=== PATIENT | male | born 1970 | race American Indian/Alaskan Native ===

== ENCOUNTER 2016-04-29 19:10 | Emergency (ER) | payer MEDICARE ==
[2016-04-29 19:38] VITALS: BP 130/76
[2016-04-29] MEDS ORDERED: MOTRIN PO ONE (21:25)
[2016-04-29] MEDS ORDERED: DELTASONE PO ONE (21:26)
--- NOTE | 2016-04-29 21:33 | Emergency Department Report ---
HPI - General Chief Complaint: Sore Throat Time Seen by Provider: 04/29/16 21:02 - HPI HPI: 46-year-old -[place] male with the past medical history of hypertension comes in for sore throat with difficulty swallowing 1 day. Patient denies any nausea vomiting no fever no chills no runny nose no watery eyes no cough. Reports is difficult to swallow. ED Past Medical Hx - Past Medical History Hx Hypertension: Yes - Surgical History Past Surgical History?: No - Social History Smoking Status: Never Smoker Substance Use Type: None - Medications Home Medications: Home Medications Medication Instructions Recorded Confirmed Last Taken Type Ibuprofen [Motrin 800 MG tab] 800 mg PO Q8HR PRN #30 tablet 04/29/16 Unknown Rx Lisinopril/Hydrochlorothiazide 1 tab PO DAILY 04/29/16 04/29/16 Unknown History ED Review of Systems ROS: Stated complaint: SORETHOAT/CANT SWALLOW Other details as noted in HPI Constitutional: denies: chills, fever ENT: throat pain Respiratory: denies: cough, shortness of breath, wheezing Cardiovascular: denies: chest pain, palpitations Gastrointestinal: denies: abdominal pain, nausea, diarrhea Genitourinary: denies: urgency, dysuria Physical Exam - Physical Exam Vital Signs: Vital Signs 04/29/16 19:34 Temperature 98.2 F Pulse Rate 86 Respiratory 16 Rate Blood Pressure 130/76 Blood Pressure 130/76 [Left] O2 Sat by Pulse 100 Oximetry Physical Exam: GENERAL: Alert and oriented x3, no apparent distress, Normal Gait, atraumatic. HEAD: Head is normocephalic and a-traumatic. EYES: Extra ocular muscles are intact. Pupils are equal, round, and reactive to light and accommodation. EARS: symetrical, atraumatic, non tender, ear canal clear and moderate cerumen, tympanic membrance non inflamed. gross auditory nml bilaterally. NOSE: Nose symetrical, Nontender,Nares appeared normal. MOUTH:Mouth is well hydrated and without lesions. Tonsils nonerythematous or swollen, Uvula midline, Tongue not elevated. Mucous membranes are moist. Posterior pharynx clear, no exudate or lesions. Patent airways. NECK: Supple. Non edematous, No carotid bruits. No lymphadenopathy or thyromegaly. LUNGS: Symetrical with respiration, No wheezing, no rales or crackles, CTAB. HEART: S1, S2 present, regular rate and rhythm without murmur, no rubs, no gallops. NEUROLOGIC: No focal Deficit, Cranial nerves II through XII are grossly intact. No loss of sensation, No facial droop, Negative rhomberg. PSYCHIATRIC: Mood is congruent with affect, denies suicidal or homicidal ideations. SKIN: Warm and dry, No lesions, No ulceration or induration present ED Course Vital Signs 04/29/16 19:34 Temperature 98.2 F Pulse Rate 86 Respiratory 16 Rate Blood Pressure 130/76 Blood Pressure 130/76 [Left] O2 Sat by Pulse 100 Oximetry ED Medical Decision Making - Medical Decision Making Evaluated by this provider in fast track. We will send out a rapid strep. We will give patient ibuprofen 800 and prednisone 40 mg by mouth. He verbalized understanding. Discussed with patient that his strep test came back negative. Recommend for him to take Motrin every 6-8 hours for pain. Follow-up with his primary care provider if symptoms persist or gets worse Critical care attestation.: If time is entered above; I have spent that time in minutes in the direct care of this critically ill patient, excluding procedure time. ED Disposition Clinical Impression: Sorethroat Disposition: DISCHARGED TO HOME OR SELFCARE Is pt being admited?: No Does the pt Need Aspirin: No Condition: Stable Instructions: Benzocaine/Menthol (By mouth) Additional Instructions: Recommend for him to take Motrin every 6-8 hours for pain. Follow-up with his primary care provider if symptoms persist or gets worse Prescriptions: Ibuprofen [Motrin 800 MG tab] 800 mg PO Q8HR PRN #30 tablet PRN Reason: Pain Referrals: PRIMARY CARE, [Primary Care Provider] - 3-5 Days Forms: Work/School Release Form(ED)
== END 2016-04-29 22:41 | disposition home or self-care (01) ==
LOC: ED 19:10
DX: J02.9 Acute pharyngitis, unspecified (principal); I10 Essential (primary) hypertension
CPT/HCPCS: 87116; 87430; 99282; J7512

== ENCOUNTER 2017-04-20 06:54 | Emergency (ER) | payer MEDICARE ==
--- NOTE | 2017-04-20 09:01 | Emergency Department Report ---
ED General Adult HPI - General Chief complaint: Medical Clearance Stated complaint: LOW PRESURE Time Seen by Provider: 04/20/17 08:18 Source: patient Mode of arrival: Ambulatory Limitations: No Limitations - History of Present Illness Initial comments: This is a 47-year-old male nontoxic, well nourished in appearance, no acute signs of distress presents to the ED with c/o of low blood pressure 1 week. Patient stated he seen [facility] on Tuesday and was diagnosed with blood pressure of 80/49 and was sent to [address] [place] [address] for further evaluation. Patient stated that he was admitted at [facility] for abnormal low blood pressure and was treated for it and then been discharged with blood pressure ranging from 120s/over 80s. Patient this morning he woke up feeling that his blood pressure was low and came in to the emergency room. Patient denies any chest pain, shortness of breathe, fever, chills, headache, nausea, vomiting, numbness, tingling, dizziness, syncope, facial dropping. Patient states allergies was to metoclopramide. PMH includes A-fib and HTN. Patient stated takes lisinopril/HCTZ daily. Patient did say that he has a follow-up appointment with a primary care doctor on Tuesday of this week. -: week(s) (1) Severity scale (0 -10): 0 Improves with: none Worsens with: none Associated Symptoms: denies other symptoms. denies: confusion, chest pain, cough, diaphoresis, fever/chills, headaches, loss of appetite, malaise, nausea/ vomiting, rash, seizure, shortness of breath, syncope, weakness Treatments Prior to Arrival: none - Related Data Home Medications Medication Instructions Recorded Confirmed Last Taken Lisinopril/Hydrochlorothiazide 1 tab PO DAILY 04/29/16 04/29/16 Unknown Previous Rx's Medication Instructions Recorded Last Taken Type Ibuprofen [Motrin 800 MG tab] 800 mg PO Q8HR PRN #30 tablet 04/29/16 Unknown Rx Allergies Allergy/AdvReac Type Severity Reaction Status Date / Time metoclopramide HCl Allergy Unknown Verified 08/13/15 17:29 [From [facility]] ED Review of Systems ROS: Stated complaint: LOW PRESURE Other details as noted in HPI Constitutional: denies: chills, fever Eyes: denies: eye pain, eye discharge, vision change ENT: denies: ear pain, throat pain Respiratory: denies: cough, shortness of breath, wheezing Cardiovascular: denies: chest pain, palpitations Endocrine: no symptoms reported Gastrointestinal: denies: abdominal pain, nausea, diarrhea Genitourinary: denies: urgency, dysuria Musculoskeletal: denies: back pain, joint swelling, arthralgia Skin: denies: rash, lesions Neurological: denies: headache, weakness, paresthesias Psychiatric: denies: anxiety, depression Hematological/Lymphatic: denies: easy bleeding, easy bruising ED Past Medical Hx - Past Medical History Previous Medical History?: Yes Hx Hypertension: Yes Hx Heart Attack/AMI: Yes Additional medical history: Hx of A fib. - Surgical History Past Surgical History?: No - Social History Smoking Status: Never Smoker Substance Use Type: Prescribed - Medications Home Medications: Home Medications Medication Instructions Recorded Confirmed Last Taken Type Ibuprofen [Motrin 800 MG tab] 800 mg PO Q8HR PRN #30 tablet 04/29/16 Unknown Rx Lisinopril/Hydrochlorothiazide 1 tab PO DAILY 04/29/16 04/29/16 Unknown History ED Physical Exam - General Limitations: No Limitations General appearance: alert, in no apparent distress - Head Head exam: Present: atraumatic, normocephalic - Eye Eye exam: Present: normal appearance - ENT ENT exam: Present: normal exam, normal orophraynx, mucous membranes moist, TM's normal bilaterally, normal external ear exam - Neck Neck exam: Present: normal inspection, full ROM. Absent: tenderness, meningismus, lymphadenopathy, thyromegaly - Respiratory Respiratory exam: Present: normal lung sounds bilaterally. Absent: respiratory distress, wheezes, rales, rhonchi, stridor, chest wall tenderness, accessory muscle use, decreased breath sounds, prolonged expiratory - Cardiovascular Cardiovascular Exam: Present: regular rate, normal rhythm, irregular rhythm, normal heart sounds. Absent: bradycardia, tachycardia, systolic murmur, diastolic murmur, rubs, gallop - GI/Abdominal GI/Abdominal exam: Present: soft, normal bowel sounds. Absent: distended, tenderness, guarding, rebound, rigid, diminished bowel sounds - Rectal Rectal exam: Present: deferred - Extremities Exam Extremities exam: Present: normal inspection, full ROM, normal capillary refill. Absent: tenderness, pedal edema, joint swelling, calf tenderness - Back Exam Back exam: Present: normal inspection, full ROM. Absent: tenderness, CVA tenderness (R), CVA tenderness (L), muscle spasm, paraspinal tenderness, vertebral tenderness, rash noted - Neurological Exam Neurological exam: Present: alert, oriented X3, CN II-XII intact, normal gait, reflexes normal - Psychiatric Psychiatric exam: Present: normal affect, normal mood - Skin Skin exam: Present: warm, dry, intact, normal color. Absent: rash ED Course Vital Signs 04/20/17 07:18 Temperature 98.5 F Pulse Rate 92 H Respiratory 18 Rate Blood Pressure 123/84 O2 Sat by Pulse 100 Oximetry - Reevaluation(s) Reevaluation #1: 04/20/17 09:11 Patient is speaking in full sentences with no signs of distress noted. ED Medical Decision Making - Medical Decision Making this is a 47-year-old male that presents with concerns of low blood pressure. Patient is febrile and was examined by me. Upon examination patient is stable and orthostatic vital signs obtained and all within normal limits. Patient's current blood pressure is within normal limits of 123/84. I instructed the patient that he should buy a blood pressure machine and take it daily. Patient was instructed to continue follow-up with his primary care doctor for further evaluation. I also refer patient to a auto job estimator. PAt time of discharge, the patient does not seem toxic or ill in appearance. No acute signs of distress noted. Patient agrees to discharge treatment plan of care. No further questions noted by the patient. Critical care attestation.: If time is entered above; I have spent that time in minutes in the direct care of this critically ill patient, excluding procedure time. ED Disposition Clinical Impression: Low blood pressure Qualifiers: Hypotension type: unspecified hypotension type Qualified Code(s): I95.9 - Hypotension, unspecified Disposition: DC-01 TO HOME OR SELFCARE Is pt being admited?: No Does the pt Need Aspirin: No Condition: Stable Additional Instructions: Follow-up with a primary care/auto job estimator doctor in 3-5 days or if symptoms worsen and continue return to emergency room as soon as possible. Referrals: PRIMARY CARE, [Primary Care Provider] - 3-5 Days LINDA GARCIA MD [Staff Physician] - 3-5 Days AGAPITO EPPS MD [Staff Physician] - 3-5 Days DALJIT CALDWELL MD [Staff Physician] - 3-5 Days [facility] [Outside] - 3-5 Days [facility] [Outside] - 3-5 Days Forms: Work/School Release Form(ED)
[2017-04-20 09:47] VITALS: BP 132/86
== END 2017-04-20 10:23 | disposition home or self-care (01) ==
LOC: ED 06:54
DX: I95.9 Hypotension, unspecified (principal)
CPT/HCPCS: 99282

== ENCOUNTER 2018-08-12 19:48 | Inpatient (IN) | payer MEDICARE, OTHER ==
[2018-08-13] MEDS ORDERED: MORPHINE IV ONE (00:11)
[2018-08-13] MEDS ORDERED: NACL 0.9% 1000 ML 1,000 ML IV ONE ×4 (00:11→03:39)
[2018-08-13] MEDS ORDERED: CLEOCIN 900 MG/50 mL 900 MG/50 ML BAG IV ONE (00:11)
[2018-08-13] MEDS ORDERED: ZOFRAN IV ONE (00:11)
[2018-08-13 01:01] LABS: Basophils # (Auto) 0.1 K/mm3 (0.0-0.1); Basophils % (Auto) 0.4 % (0.0-1.8); Eosinophils % (Auto) 0.1 % (0.0-4.3); Hematocrit 41.2 % (35.5-45.6); Hemoglobin 13.6 gm/dl (11.8-15.2); Lymphocytes # (Auto) 2.2 K/mm3 (1.2-5.4); Lymphocytes % (Auto) 15.9 % (13.4-35.0); Mean Corpuscular HGB Conc 33 % (32-34); Mean Corpuscular Volume 86 fl (84-94); Monocytes # (Auto) 1.2 K/mm3 (0.0-0.8); Monocytes % (Auto) 8.4 % (0.0-7.3); Platelet Count 191 K/mm3 (140-440); Red Cell Distribution Width 14.4 % (13.2-15.2)
[2018-08-13 01:29] LABS: Alanine Aminotransferase 24 units/L (7-56); Albumin 4.3 g/dL (3.9-5); BUN/Creatinine Ratio 13; Blood Urea Nitrogen 12 mg/dL (9-20); Calcium 9.2 mg/dL (8.4-10.2); Hemolysis Index 9
[2018-08-13] MEDS ORDERED: TYLENOL ONE ×2 (02:52→02:54)
[2018-08-13] MEDS ORDERED: IBUPROFEN PO ONE ×2 (02:53)
[2018-08-13] MEDS ORDERED: TYLENOL PO ONE (02:53)
--- NOTE | 2018-08-13 02:57 | Emergency Department Report ---
ED Extremity Problem HPI - General Chief complaint: Extremity Injury, Lower Stated complaint: R LEG SWELLING Time Seen by Provider: 08/13/18 00:05 Source: patient Mode of arrival: Ambulatory Limitations: No Limitations - History of Present Illness Initial comments: Patient is a 48-year-old -[place] male with a history of hypertension who presents to the ED with complaint of acute onset persistent nontraumatic anterior right lower leg pain and swelling with erythematous rash for the last 2 days. Patient and she is unsure as to the etiology of the rash but states that in the last 12 hours the swelling and the pain have worsened. Patient also complains of subjective fever, chills, generalized weakness and fatigue. Patient states that he was initially treated at another hospital emergency department and was given oral antibiotics and discharged but patient states that when he got home his symptoms got worse such that he was unable to walk because of severe pain. Patient however denies chest pain, shortness of breath, dizziness, numbness and tingling of the right leg, change in vision, headache, abdominal pain, diarrhea, nausea and vomiting. MD Complaint: extremity pain (right), extremity swelling (right lower leg) -: Sudden, days(s) (2) Location: right, lower extremity History of Same: No -: Yes myalgia, Yes arthralgia, Yes fever Radiation: distal Severity scale (0 -10): 8 Quality: burning, aching, sharp Consistency: constant Improves with: nothing Worsens with: nothing Associated Symptoms: denies other symptoms, fever, myalgias, arthralgias, rash (erythematous maculopapular nonfluctuant rash on the anterior right lower leg). denies: chest pain, shortness of breath - Related Data Home Medications Medication Instructions Recorded Confirmed Last Taken Lisinopril/Hydrochlorothiazide 1 tab PO DAILY 04/29/16 04/29/16 Unknown Previous Rx's Medication Instructions Recorded Last Taken Type Ibuprofen [Motrin 800 MG tab] 800 mg PO Q8HR PRN #30 tablet 04/29/16 Unknown Rx Allergies Allergy/AdvReac Type Severity Reaction Status Date / Time metoclopramide HCl Allergy Unknown Verified 08/13/15 17:29 [From [facility]] ED Review of Systems ROS: Stated complaint: R LEG SWELLING Other details as noted in HPI Constitutional: chills, fever, malaise, weakness Eyes: denies: eye pain, eye discharge, vision change ENT: denies: ear pain, throat pain Respiratory: denies: cough, shortness of breath, wheezing Cardiovascular: denies: chest pain, palpitations Endocrine: no symptoms reported Gastrointestinal: denies: abdominal pain, nausea, diarrhea Genitourinary: denies: urgency, dysuria Musculoskeletal: arthralgia, myalgia, other (right lower leg pain with erythematous rash). denies: back pain, joint swelling Skin: rash (erythematous maculopapular nonfluctuant rash on anterior right lower leg). denies: lesions Neurological: denies: headache, weakness, paresthesias Psychiatric: denies: anxiety, depression Hematological/Lymphatic: denies: easy bleeding, easy bruising ED Past Medical Hx - Past Medical History Previous Medical History?: Yes Hx Hypertension: Yes Hx Heart Attack/AMI: Yes Additional medical history: Hx of A fib. - Surgical History Past Surgical History?: No - Social History Smoking Status: Never Smoker Substance Use Type: None - Medications Home Medications: Home Medications Medication Instructions Recorded Confirmed Last Taken Type Ibuprofen [Motrin 800 MG tab] 800 mg PO Q8HR PRN #30 tablet 04/29/16 Unknown Rx Lisinopril/Hydrochlorothiazide 1 tab PO DAILY 04/29/16 04/29/16 Unknown History ED Physical Exam - General Limitations: No Limitations General appearance: alert, in no apparent distress - Head Head exam: Present: atraumatic, normocephalic, normal inspection - Eye Eye exam: Present: normal appearance, PERRL, EOMI. Absent: scleral icterus, conjunctival injection, periorbital swelling, periorbital tenderness Pupils: Present: normal accommodation - ENT ENT exam: Present: normal exam, normal orophraynx, mucous membranes moist. Absent: TM's normal bilaterally, normal external ear exam - Neck Neck exam: Present: normal inspection, full ROM - Respiratory Respiratory exam: Present: normal lung sounds bilaterally. Absent: respiratory distress, wheezes, rales, chest wall tenderness - Cardiovascular Cardiovascular Exam: Present: normal rhythm, tachycardia, normal heart sounds. Absent: systolic murmur, diastolic murmur, rubs, gallop - GI/Abdominal GI/Abdominal exam: Present: soft, normal bowel sounds. Absent: tenderness, guarding, rebound, hyperactive bowel sounds, hypoactive bowel sounds, organomegaly, bruit, pulsatile mass - Rectal Rectal exam: Present: deferred - Extremities Exam Extremities exam: Present: normal inspection, full ROM, tenderness (Palpable anterior right lower leg tenderness with swelling due to erythematous maculopapular nonfluctuant rash), normal capillary refill - Back Exam Back exam: Present: normal inspection, full ROM. Absent: tenderness, CVA tenderness (R), CVA tenderness (L), paraspinal tenderness - Neurological Exam Neurological exam: Present: alert, oriented X3, CN II-XII intact, normal gait, reflexes normal - Psychiatric Psychiatric exam: Present: normal affect, normal mood - Skin Skin exam: Present: warm, dry, intact, rash (erythematous maculopapular nonfluctuant rash on anterior right lower leg), erythema ED Course Vital Signs 08/12/18 08/13/18 21:14 02:45 Temperature 99.3 F 102.8 F H Pulse Rate 129 H 112 H Respiratory 20 20 Rate Blood Pressure 153/81 Blood Pressure 96/44 [Right] O2 Sat by Pulse 100 97 Oximetry - Reevaluation(s) Reevaluation #1: 08/13/18 03:08 Patient is alert and oriented 3 and is not in any distress but tachycardic with a low-grade fever to touch. Labs are drawn and patient treated for pain, and blood cultures also collected. The patient was empirically started on clindamycin 900 mg IV 1, and normal saline 1 L IV bolus. On reevaluation, patient is still tachycardic and fully febrile with fever 102F and hypotensive. Patient met sepsis protocol and code sepsis was called and lactic acid also ordered. Patient given more normal saline IV fluids, and treated for fever with ibuprofen and Tylenol. 08/13/18 03:08 ED Medical Decision Making - Lab Data Result diagrams: 08/13/18 00:27 08/13/18 00:27 - Medical Decision Making Patient is alert and oriented 3 and is not in any distress but tachycardic with a low-grade fever to touch. Labs are drawn and patient treated for pain, and blood cultures also collected. The patient was empirically started on clindamycin 900 mg IV 1, and normal saline 1 L IV bolus. On reevaluation, patient is still tachycardic and fully febrile with fever 102F and hypotensive. Patient met sepsis protocol and code sepsis was called and lactic acid also ordered. Patient given more normal saline IV fluids, and treated for fever with ibuprofen and Tylenol. I discussed the patient's case with the ED attending physician Dr. Anderson who added the sepsis protocol bundle and advised that the patient be admitted with the hospitalist for further treatment. Patient was transferred to the main ED room 2 monitoring and admission. The patient's case was also discussed with the hospitalist physician military communications specialist Dr. Jimenez who admitted the patient to the hospital. - Differential Diagnosis Cellulitis; fever and chills, sepsis due to cellulitis, abscess of leg Critical care attestation.: If time is entered above; I have spent that time in minutes in the direct care of this critically ill patient, excluding procedure time. ED Disposition Clinical Impression: Fever and chills, Sepsis due to cellulitis, Pain of right lower leg Disposition: OP ADMIT IP TO THIS HOSP Is pt being admited?: Yes Does the pt Need Aspirin: Yes Condition: Critical Time of Disposition: 03:24 Print Language: [place]
[2018-08-13] MEDS ORDERED: TYLENOL PO PRN (03:32)
[2018-08-13] MEDS ORDERED: ZOFRAN IV PRN (03:32)
[2018-08-13] MEDS ORDERED: VANCOMYCIN/NS 1 GM/250 ML 1 GM/250 ML BAG IV SCH (03:38)
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
[2018-08-13] MEDS ORDERED: NACL 0.9% 1000 ML 1,000 ML IV SCH (04:00)
[2018-08-13] MEDS: VANCOMYCIN 2,000 MG in NACL 0.9% 500 ML 500 ML IV SCH ×2 (04:57→18:10)
[2018-08-13 06:13] LABS: Basophils % (Auto) 0.2 % (0.0-1.8); Eosinophils % (Auto) 0.3 % (0.0-4.3); Hematocrit 36.1 % (35.5-45.6); Lymphocytes # (Auto) 2.4 K/mm3 (1.2-5.4); Lymphocytes % (Auto) 16.8 % (13.4-35.0); Mean Corpuscular HGB Conc 33 % (32-34); Mean Corpuscular Volume 86 fl (84-94); Monocytes # (Auto) 1.3 K/mm3 (0.0-0.8); Monocytes % (Auto) 9.5 % (0.0-7.3); Platelet Count 159 K/mm3 (140-440)
[2018-08-13 06:34] LABS: BUN/Creatinine Ratio 14; Blood Urea Nitrogen 11 mg/dL (9-20); Calcium 8.1 mg/dL (8.4-10.2); Hemolysis Index 2
[2018-08-13] MEDS: PERCOCET 5/325 PO PRN ×4 (07:46→21:07)
[2018-08-13] MEDS ORDERED: LOVENOX SUB-Q SCH (10:00)
[2018-08-13] MEDS: LOVENOX SUB-Q SCH (10:50)
[2018-08-13] MEDS: SODIUM CHLORIDE FLUSH SYRINGE 10 ML IV SCH ×2 (10:51→21:09)
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
--- NOTE | 2018-08-13 15:56 | Vascular Lab Report ---
DUPLEX DOPPLER LOWER EXTREMITY VEINS, BILATERAL INDICATION: Bilateral leg pain and swelling. Cellulitis. TECHNIQUE: Duplex doppler imaging was performed through the veins of both lower extremities using venous jerardo jo and other maneuvers. COMPARISON: None available. FINDINGS: Right Common femoral vein: Negative. Right Superficial femoral vein: Negative. Right Popliteal vein: Negative. Right Calf veins: Negative. Left Common femoral vein: Negative. Left Superficial femoral vein: Negative. Left Popliteal vein: Negative. Left Calf veins: Negative. Additional findings: There is no evidence of a popliteal cyst or other abnormality. IMPRESSION: No sonographic evidence for DVT in either lower extremity. Signer Name: Donta Renee MD Signed: 08/13/2018 3:52 PM Workstation Name: [id number]
[2018-08-13] MEDS: ceFAZolin 3 GM in NACL 0.9% 100 ML IV SCH ×2 (18:20→21:08)
[2018-08-13] MEDS: ZESTRIL PO SCH (21:07)
[2018-08-13] MEDS: HCTZ PO SCH (21:07)
[2018-08-13] MEDS: PRAVACHOL PO SCH (21:07)
[2018-08-13] MEDS ORDERED: LOVASTATIN 20 MG PO SCH (22:00)
[2018-08-14] MEDS: PERCOCET 5/325 PO PRN ×5 (01:04→21:48)
[2018-08-14 01:11] LABS: Basophils % (Auto) 0.2 % (0.0-1.8); Eosinophils % (Auto) 0.6 % (0.0-4.3); Hematocrit 35.6 % (35.5-45.6); Hemoglobin 11.9 gm/dl (11.8-15.2); Lymphocytes # (Auto) 2.4 K/mm3 (1.2-5.4); Lymphocytes % (Auto) 18.2 % (13.4-35.0); Mean Corpuscular HGB Conc 33 % (32-34); Mean Corpuscular Volume 86 fl (84-94); Platelet Count 166 K/mm3 (140-440); Red Blood Count 4.15 M/mm3 (3.65-5.03); Red Cell Distribution Width 13.8 % (13.2-15.2)
[2018-08-14 01:12] LABS: Eosinophils # (Auto) 0.1 K/mm3 (0.0-0.4)
[2018-08-14 01:38] LABS: Erythrocyte Sedimentation Rate 30 mm/Hr (0-20)
[2018-08-14] MEDS: VANCOMYCIN 2,000 MG in NACL 0.9% 500 ML 500 ML IV SCH ×2 (03:08→16:41)
[2018-08-14] MEDS: ceFAZolin 3 GM in NACL 0.9% 100 ML IV SCH (05:02)
[2018-08-14 05:19] LABS: BUN/Creatinine Ratio TNR; Blood Urea Nitrogen TNR mg/dL (9-20); Calcium TNR mg/dL (8.4-10.2); Hemolysis Index TNR
[2018-08-14] MEDS: LOVENOX SUB-Q SCH (09:36)
[2018-08-14] MEDS: ZESTRIL PO SCH (09:37)
[2018-08-14] MEDS: HCTZ PO SCH (09:37)
[2018-08-14] MEDS: ASPIRIN PO SCH (09:37)
[2018-08-14] MEDS: SODIUM CHLORIDE FLUSH SYRINGE 10 ML IV SCH ×2 (09:38→21:52)
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
--- NOTE | 2018-08-14 12:18 | Cat Scan Report ---
CT LOWER EXTREMITY RIGHT WITH CONTRAST HISTORY: Right knee pain and swelling for 3 days. TECHNIQUE: Helical CT following IV contrast was performed from the right knee to the right ankle. Sag ittal and coronal reformatted images. All CT scans at this location are performed using CT dose reduc tion for ALARA by means of automated exposure control. FINDINGS: There is nonspecific subcutaneous edema in the medial right lower extremity consistent with celluliti s. There is no evidence for radiopaque foreign body, fluid collection or subcutaneous gas. The bony s tructures are intact. No periostitis, bony destruction or fracture. The muscular and vascular structu res are unremarkable. IMPRESSION: Nonspecific subcutaneous edema in the medial right lower extremity suggestive of cellulitis. No evide nce for abscess, foreign body, osteomyelitis or fasciitis. Signer Name: Sorin Martinez Jr, MD Signed: 08/14/2018 12:14 PM Workstation Name: [id number]
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
[2018-08-14] MEDS: MAXIPIME/NS 2 GM/100 ML 2 GM/100 ML BAG IV SCH ×3 (15:47→23:21)
[2018-08-14] MEDS: PRAVACHOL PO SCH (21:50)
[2018-08-15] MEDS: PERCOCET 5/325 PO PRN ×3 (03:40→15:34)
[2018-08-15] MEDS: VANCOMYCIN 2,000 MG in NACL 0.9% 500 ML 500 ML IV SCH (03:40)
[2018-08-15 04:38] LABS: Hematocrit 35.2 % (35.5-45.6); Mean Corpuscular HGB Conc 34 % (32-34); Mean Corpuscular Volume 85 fl (84-94); Platelet Count 174 K/mm3 (140-440); Red Blood Count 4.13 M/mm3 (3.65-5.03); Red Cell Distribution Width 13.8 % (13.2-15.2)
[2018-08-15 05:02] LABS: BUN/Creatinine Ratio 15; Blood Urea Nitrogen 12 mg/dL (9-20); Calcium 8.7 mg/dL (8.4-10.2); Hemolysis Index 7
[2018-08-15] MEDS: MAXIPIME/NS 2 GM/100 ML 2 GM/100 ML BAG IV SCH ×3 (06:57→23:49)
--- NOTE | 2018-08-15 09:08 | Progress Note ---
Assessment and Plan - Patient Problems (1) Sepsis due to cellulitis Current Visit: Yes Status: Acute Plan to address problem: Pt stable. The CT showed now fluid collections. On exam, there are no areas of fluctuance. Exam is stable. WBC is trending down. Rec: 1) Cont IV Abx. 2) No surgical intervention at this time. Will follow along. Please call with questions. time=10min Subjective Date of service: 08/15/18 Patient Reports: Positive: no new complaints Objective Vital Signs - 12hr 08/14/18 08/15/18 08/15/18 23:55 00:00 03:38 Temperature 100.2 F H 99.0 F Pulse Rate 96 H 91 H Respiratory 18 18 18 Rate Blood Pressure 142/69 153/93 O2 Sat by Pulse 97 98 Oximetry 08/15/18 08/15/18 04:11 08:32 Temperature 98.5 F Pulse Rate 94 H 85 Respiratory 16 Rate Blood Pressure 125/84 O2 Sat by Pulse 95 Oximetry - General physical appearance no distress, no pain - Respiratory normal expansion, normal respiratory effort - Integumentary other (unchanged RLE exam) - Psychiatric oriented to time, oriented to person, oriented to place, speech is normal, memory intact - Labs 08/15/18 04:22 08/15/18 04:22 Diabetes panel 08/15/18 Range/Units 04:22 Sodium 138 (137-145) mmol/L Potassium 4.0 (3.6-5.0) mmol/L Chloride 101.6 (98-107) mmol/L Carbon Dioxide 27 (22-30) mmol/L BUN 12 (9-20) mg/dL Creatinine 0.8 (0.8-1.5) mg/dL Glucose 99 (75-100) mg/dL Calcium 8.7 (8.4-10.2) mg/dL Calcium panel 08/15/18 Range/Units 04:22 Calcium 8.7 (8.4-10.2) mg/dL Pituitary panel 08/15/18 Range/Units 04:22 Sodium 138 (137-145) mmol/L Potassium 4.0 (3.6-5.0) mmol/L Chloride 101.6 (98-107) mmol/L Carbon Dioxide 27 (22-30) mmol/L BUN 12 (9-20) mg/dL Creatinine 0.8 (0.8-1.5) mg/dL Glucose 99 (75-100) mg/dL Calcium 8.7 (8.4-10.2) mg/dL Adrenal panel 08/15/18 Range/Units 04:22 Sodium 138 (137-145) mmol/L Potassium 4.0 (3.6-5.0) mmol/L Chloride 101.6 (98-107) mmol/L Carbon Dioxide 27 (22-30) mmol/L BUN 12 (9-20) mg/dL Creatinine 0.8 (0.8-1.5) mg/dL Glucose 99 (75-100) mg/dL Calcium 8.7 (8.4-10.2) mg/dL
[2018-08-15] MEDS: HCTZ PO SCH (09:56)
[2018-08-15] MEDS: LOVENOX SUB-Q SCH (09:56)
[2018-08-15] MEDS: ASPIRIN PO SCH (09:56)
[2018-08-15] MEDS: SODIUM CHLORIDE FLUSH SYRINGE 10 ML IV SCH ×2 (09:56→21:42)
[2018-08-15] MEDS: ZESTRIL PO SCH (09:57)
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
[2018-08-15] MEDS: VANCOMYCIN 1,500 MG in NACL 0.9% 500 ML 500 ML IV SCH ×2 (14:26→21:48)
[2018-08-15] MEDS: PRAVACHOL PO SCH ×2 (21:42→21:53)
[2018-08-15] MEDS: SODIUM CHLORIDE FLUSH SYRINGE 10 ML IV PRN (23:46)
[2018-08-16] MEDS: VANCOMYCIN 1,500 MG in NACL 0.9% 500 ML 500 ML IV SCH ×2 (05:49→15:34)
[2018-08-16] MEDS: SODIUM CHLORIDE FLUSH SYRINGE 10 ML IV PRN (05:49)
[2018-08-16] MEDS: PERCOCET 5/325 PO PRN ×2 (07:46→11:24)
[2018-08-16] MEDS: MAXIPIME/NS 2 GM/100 ML 2 GM/100 ML BAG IV SCH (07:47)
[2018-08-16 08:27] VITALS: BP 123/44
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
[2018-08-16] MEDS: HCTZ PO SCH (11:25)
[2018-08-16] MEDS: ZESTRIL PO SCH (11:25)
[2018-08-16] MEDS: LOVENOX SUB-Q SCH (11:25)
[2018-08-16] MEDS: ASPIRIN PO SCH (11:25)
[2018-08-16] MEDS: SODIUM CHLORIDE FLUSH SYRINGE 10 ML IV SCH (11:26)
--- NOTE | 2018-08-16 13:47 | Progress Note ---
Assessment and Plan - Patient Problems (1) Sepsis due to cellulitis Current Visit: Yes Status: Acute Plan to address problem: Pt stable. the leg looks less swollen today. Rec: 1) Cont IV Abx. 2) No surgical intervention at this time. Please call with questions. time=10min Subjective Date of service: 08/16/18 Patient Reports: Positive: no new complaints (able to walk on the leg now) Objective Vital Signs - 12hr 08/16/18 08/16/18 04:01 08:09 Temperature 99.6 F 98.9 F Pulse Rate 95 H 93 H Respiratory 20 16 Rate Blood Pressure 140/66 123/44 O2 Sat by Pulse 97 98 Oximetry - General physical appearance no distress, no pain - Respiratory normal expansion, normal respiratory effort - Psychiatric oriented to time, oriented to person, oriented to place, speech is normal, memory intact - Labs 08/15/18 04:22 08/15/18 04:22
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
== END 2018-08-16 18:20 | disposition home or self-care (01) | DRG 872 ==
LOC: ED 19:48 → 4A 08-13 05:29
PROVIDERS: ADMIT Internal Medicine; ATTEND Internal Medicine
DX: A41.9 Sepsis, unspecified organism (principal); L03.115 Cellulitis of right lower limb; Z68.43 Body mass index [BMI] 50.0-59.9, adult; I10 Essential (primary) hypertension; I48.91 Unspecified atrial fibrillation; I25.10 Atherosclerotic heart disease of native coronary artery without angina pectoris; E66.01 Morbid (severe) obesity due to excess calories; B96.5 Pseudomonas (aeruginosa) (mallei) (pseudomallei) as the cause of diseases classified elsewhere; I25.2 Old myocardial infarction; Z88.8 Allergy status to other drugs, medicaments and biological substances
CPT/HCPCS: 36415; 80048; 80053; 80202; 82140; 85025; 85027; 85652; 86140; 87040; 93970; 96365; 96375; G0378; A9270-GY; J0690; J0692; J1650; J2270; J2405; J3370; J7030; J7040; Q9967